=== PATIENT | female | born 1960 | race Caucasian/White ===

== ENCOUNTER 2025-06-05 09:46 | Outpatient (OUT) | payer MEDICARE, MEDICAID, SELFPAY ==
--- OUTSIDE RECORDS SUMMARY | 2014-08-29 11:30 | XMS_ITS | Encounter Summary ---
Author Organization [facility] 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 No 11/26/2024 Social Connection and Isolation Panel Answer Date Recorded In a typical week, how many times do you talk on the phone with family, friends, or neighbors? Three times a week 07/27/2022 How often do you get togethe r with friends or relatives? Once a week 07/27/2022 How often do you attend [facility] or episcopalian services? Never 07/27/2022 Do you belong to any clubs o r organizations such as caodaism groups, unions, fraternal or athletic groups, or school groups? No 07/27/2022 How often do you attend meet ings of the clubs or organizations you belong to? Never 07/27/2022 Are you , , di vorced, , never , or living with a partner? 07/27/2022 AUDIT-C Answer Date Recorded Q1: How often do you have a drink containing alcohol? Never 12/26/2024 Q2: How many drinks containi ng alcohol do you have on a typical day when you are drinking? Patient does not drink Q3: How often do you have si x or more drinks on one occasion? Never 12/26/2024 Overall Financial Resource Strain (CARDIA) Answe r Date Recorded How hard is it for you to pa y for the very basics like food, housing, medical care, and heating? Not very hard 06/25/2024 PHQ-2 Answer Date Recorded PHQ-9 Total Score 0 12/26/2024 [facility] - Occupational Stress Questionnaire Answer Date Recorded Do you feel stress - tense, restless, nervous, or anxious, or unable to sleep at night because your mind is troubled all the time - these days? To some extent 07/27/2022 Exercise Vital Sign Answer Date Recorde d On average, how many days pe r week do you engage in moderate to strenuous exercise (like a brisk walk)? 0 days 12/26/2024 On average, how many minutes do you engage in exercise at this level? 0 min 12/26/2024 Hunger Vital Sign Answer Date Recorded Within the past 12 months, y ou worried that your food would run out before you got the money to buy more. Never true 11/26/19 25 Within the past 12 months, t he food you bought just didn't last and you didn't have money to get more. Never true 11/26/2024 PRAPARE - Transportation Answer Date Re corded In the past 12 months, has l ack of transportation kept you from medical appointments or from getting medications? No 11/03 In the past 12 months, has l ack of transportation kept you from meetings, work, or from getting things needed for daily living? No 11/26/2024 Housing Stability Vital Sign Answer Chiki e Recorded Unable to Pay for Housing in the Last Year Not o n file 05/19/2023 Number of Places Lived in the Last Year Not on f ile 05/19/2023 In the last 12 months, was t here a time when you did not have a steady place to sleep or slept in a longterm (including now)? No 05/19/2023 Housing Stability Vital Sign Answer Chiki e Recorded In the last 12 months, was t here a time when you were not able to pay the mortgage or rent on time? No 11/26/2024 In the past 12 months, how m any times have you moved where you were living? 0 11/26/2024 At any time in the past 12 m onths, were you homeless or living in a longterm (including now)? No 11/26/2024 Food Insecurity Answer Date Recorded Within the past 12 months, y ou worried that your food would run out before you got the money to buy more. 1 11/26/2024 Within the past 12 months, t he food you bought just didn't last and you didn't have money to get more. 1 11/26/2024 Interpersonal Safety Domain Source: IP Abuse Scr eening Answer Date Recorded Physical abuse Denies 10/26/2024 Verbal abuse Denies 10/26/2024 Emotional abuse Denies 10/26/2024 Financial abuse Denies 10/26/2024 Sexual abuse Denies 10/26/2024 Comments No Sex and Gender Information Value Date Recorded Sex Assigned at Female 08/07/2019 6:53 PM EST Legal Sex Female 9:47 PM EST Gender Identity Female 08/07/2019 6:53 PM EST Sexual Orientation Straight 08/07/2019 6: 53 PM EST COVID-19 Exposure Response Date Recorded In the last 10 days, have yo u been in contact with someone who was confirmed or suspected to have Coronavirus/COVID-19? No / Unsure 08/26/2022 12:59 PM EST documented as of this encounter Functional Status * Question Answer Date of Assessment Author Q1: How often do you have a drink containing alcohol? Never 12/26/2024 11:35 AM Jennifer Cabrales M A Q2: How many drinks containing alcohol do you have on a typical day when you are drinking? Patient does not drink 12/26/2024 11:35 AM EDT Jennifer Ascencio MA Q3: How often do you have six or more drinks on one occasion? Never 12/26/2024 11:35 AM EDT Jennifer Ascencio M A * AUDIT-C Score Answer Date of Assessment Author 0 12/26/2024 11:35 AM EDT Jaiden Ascencio MA documented as of this encounter Progress Notes * Cari Will Jaiden - 08/29/2014 11:44 AM EST Images from the original note were not included. [facility] Outpatient Physical Therapy Daily Note Date: 08/29/2014 Patient Name: Marissa Gordon : 1960 (54 y.o.) Referring Practitioner: Dr. Seamus Cray Referral Date : 07/18/14 Diagnosis: Chronic LBP, Hip Pain, L Knee Pain Treatment Diagnosis: LBP/Left hip pain Onset Date: 07/18/14 PT Insurance Information: [facility] -POC exp:09/18/14 Total # of Visits Approved: 18 Per Physician Order Total # of Visits to Date: 5 No Show: 0 Canceled Appointment: 2 Pre-Treatment Pain: 9/10 Assessment Assessment: Patient continues with high pain level (9/10). Pt states had to cancel appt for prosthesis but has appointment next week. continues with L foot numbness especially with sitting. Pt c/o new symptom of pain from medial malloli across to0p of foot to lateral malloli Plan Plan: Continue with current plan Exercises/Modalities/Manual: See DocFlow Sheet Goals Short Term Goals - Time Frame for Short term goals: 9 visits Short term goal 1: Pt to report independence with HEP Short term goal 2: Pt to have 15deg of L Hip IR. Short term goal 3: Pt to report worst pain in L hip 6/10 x3days Custodial Goals - Time Frame for long-term goals : 18 visits long-term goal 1: Pt to report amb tan >20min without increased pain long-term goal 2: Pt to have 4+/5 L Hip Extensor strength long-term goal 3: Pt to complete up/down 1 flight of steps with 1 HR without increased pain. [employer] goal 4: Pt to have L hip ER >45deg to allow pt to kellen shoe/sock without increased pain. 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 Date: 08/29/2014 Cosigned by Yesica Dinh PT at 08/31/2014 3:49 PM EST documented in this encounter Plan of Treatment Upcoming Encounters Date Type Department Care Team (Late st Contact Info) Description 01/08/2026 10:00 AM EDT Office Visit [facility] Urology [address] [facility] [address] [place] [address] Chip Johansen, PAAnand 27 [facility] [address] [address] yearly PVR documented as of this encounter Visit Diagnoses Not on filedocumented in this encounter Additional Health Concerns Infection Onset Date Last Indicated Resolved Time COVID-19 (Rule Out) 06/01/2020 06/01/2020 06/15/20 20 9:28 PM EDT COVID-19 (Rule Out) 07/06/2020 07/06/2020 07/06/20 20 7:52 AM EDT COVID-19 (Rule Out) 08/24/2021 08/24/2021 08/25/20 21 10:44 AM EST COVID-19 (Rule Out) 09/01/2021 09/01/2021 09/01/20 21 3:56 PM EST documented as of this encounter
--- NOTE | 2025-06-05 | XR_ITS ---
The [address] [address] Patient Name: BONI WILLIAM MRN: [id number] date: 1960 Sex: F Assigned Patient Location: [facility] Current Patient Location: [facility] Accession/Order Number: [id number] Exam Date: 06/05/2025 09:52 Report Date: 06/05/2025 10:26 At the request of: ASHLEY TUCKER DO Procedure: XR shoulder RT min 2V RIGHT SHOULDER - 3 views CLINICAL HISTORY: Z98.890 status post arthroscopy of right shoulder COMPARISON: None AP, Y and Grashey views were obtained. There is osteopenia. There is no acute fracture or dislocation. Minor hypertrophy is seen at the acromioclavicular and inferior glenohumeral joints. There is sclerosis and irregularity at the greater tuberosity. There are no significant soft tissue findings. XR/XR shoulder RT min 2V IMPRESSION: OSTEOPENIA AND DEGENERATIVE CHANGES. NO ACUTE BONY FINDINGS. Impression dictated by: Geno London M.D. 06/05/2025 10:26 AM Dictation Location: [place] [address] Electronically authenticated by: [id number] Y Date: 06/05/2025 10:26
--- OUTSIDE RECORDS SUMMARY | 2025-06-05 09:48 | XMS_ITS | Encounter Summary ---
Author Organization [facility] Address [address] [place] [address] Care Team Providers Care Lumber Carrier Operator Name Role Phone Gabriel Reynolds DO Primary Care Provider + Bety Vogle MD Unavailable [phone] Bety Vogel MD Unavailable [phone] Prashant ADAMS MD, Robert Miller Unavailable + Source Comments In the event this information is protected by the Federal Confidentiality of Alcohol and Drug AbusePatient Records regulations: The Federal rules restrict any use of the information to criminally investigate or prosecute any alcohol or drug abuse patient.[facility] Encounter Details Date Type Department Care Team (Late st Contact Info) Description 2023 [place] [address] Provider, [facility] Medicare Coverage of Physical Exams Social History Tobacco Use Types Packs/Day Years Used Date Smoking Tobacco: Former Cigarettes Q uit: 04/27/2015 Alcohol Use Standard Drinks/Week Comments No 0 (1 standard drink = 0.6 oz pur e alcohol) Area Deprivation Index Answer Date Antoine rded National Score (1-100), lower number is lower ri sk 67 01/10/2023 State Score (1-10), lower number is lower risk N ot on file 01/10/2023 Data from: https://www.[facility]/. Last address used for calculation [address] [facility] 01/10/2023 Comments Unknown Sex and Gender Information Value Date Recorded Sex Assigned at Not on file Legal Sex Female 10:07 AM EST Gender Identity Not on file Sexual Orientation Straight 11/29/2022 1: 31 PM EST documented as of this encounter Functional Status * Are you deaf or do you have serious difficulty hearing? Answer Date of Assessment Author No 05/12/2015 5:30 PM Matteo Fish RN * Are you blind or do you have serious difficulty seeing, even when wearing glasses? Answer Date of Assessment Author No 05/12/2015 5:30 PM Matteo Fish RN * Do you have serious difficulty walking or climbing stairs? Answer Date of Assessment Author No 05/12/2015 5:30 PM Matteo Fish RN * Do you have difficulty dressing or bathing? Answer Date of Assessment Author No 05/12/2015 5:30 PM Matteo Fish RN * Because of a physical, mental, or emotional condition, do you have difficulty doing errands alone such as visiting a doctor's office or shopping? Answer Date of Assessment Author No 05/12/2015 5:30 PM Matteo Fish RN documented as of this encounter Mental Status * Because of a physical, mental, or emotional condition, do you have serious difficulty concentrating, remembering, or making decisions? Answer Entry Date Author No 05/12/2015 5:30 PM Matteo Fish RN documented in this encounter Plan of Treatment Not on file documented as of this encounter Visit Diagnoses Not on filedocumented in this encounter Care Teams Lumber Carrier Operator Relationship Specialty Start Date End Date Gabriel Reynolds DO PCP - General Family Medicine 07/30/13 Bety Vogel MD [address] [place] [address] Referring Orthopedics 05/12/15 Bety Vogel MD [address] [place] [address] Home Care Provider Orthopedics 05/12/15 Oskar Cerda II, MD [address] [place] [address] Orthopedics 11/15/22 documented as of this encounter
--- OUTSIDE RECORDS SUMMARY | 2025-06-05 09:48 | XMS_ITS | Clinical Summary ---
Author Organization [facility] Address [address] [place] [address] Care Team Providers Care Radio Interference Supervisor Name Role Phone Gabriel Reynolds DO Primary Care Provider + Bety Vogel MD Unavailable [phone] Bety Vogel MD Unavailable [phone] Prashant ADAMS MD, Robert Miller Unavailable + Allergies No known active allergies Medications DESLORATADINE 5 mg tablet Take 10 mg by mouth once daily. 07/14/2013 Active cyclobenzaprine (FLEXERIL) 5 mg tablet Take 10 mg by mouth daily at bedtime. Active pregabalin (LYRICA) 75 mg capsule Take 75 mg by mouth daily at bedtime. Active acetaminophen (TYLENOL) 500 mg tablet Take 2 tablets by mouth every 8 hours as needed. 100 tablet 3 05/11/2015 Active HYDROCODONE/RENA TAMINOPHEN (NORCO ORAL) Take by mouth as needed. Active Active Problems Problem Noted Date Diagnosed Date Osteoarthrosis, unspecified whether generalized or localized, pelvic region and thigh 05/12/2015 Osteoarthritis of left hip 05/11/2015 Family History Medical History Relation Comments Cancer Father Relation Status Comments Father Mother Alive Social History Tobacco Use Types Packs/Day Years Used Date Smoking Tobacco: Former Cigarettes Q uit: 04/27/2015 Tobacco Cessation:Counseling Given: Not Answered Alcohol Use Standard Drinks/Week Comments No 0 (1 standard drink = 0.6 oz pur e alcohol) Area Deprivation Index Answer Date Antoine rded National Score (1-100), lower number is lower ri sk 79 02/21/2023 State Score (1-10), lower number is lower risk 7 02/21/2023 Data from: https://www.neighborhoodatlas.medicine.[facility].edu/. Last address used for calculation [address] 02/21/2023 Comments Unknown Sex and Gender Information Value Date Recorded Sex Assigned at Not on file Legal Sex Female 10:07 AM EST Gender Identity Not on file Sexual Orientation Straight 11/29/2022 1: 31 PM EST Last Filed Vital Signs Vital Sign Reading Time Taken Comments Blood Pressure 98/58 05/26/2015 4:00 AM EDT Pulse 74 05/26/2015 4:00 AM EDT Temperature 36.8 C (98.2 F) 05/12/2015 1:49 PM EDT Respiratory Rate 18 05/26/2015 4:00 AM EDT Oxygen Saturation 99% 05/12/2015 3:51 PM EDT Inhaled Oxygen Concentration - - Weight 48.5 kg (107 lb) 05/11/2015 4:07 PM EDT Height 162.6 cm (5' 4 ) 05/11/2015 4:07 PM EDT Body Mass Index 18.37 05/11/2015 4:07 PM EDT Plan of Treatment Health Maintenance Due Date Last Done Comments Anxiety Screening 01/12/1976 Depression Screening 01/12/1976 DTaP,Tdap,Td Vaccine (1 - Tdap) 1977 CT Colonography 2003 Cologuard (FIT-DNA) 2003 Colonoscopy 2003 Colorectal Cancer Screening 2003 Fecal Occult Blood 2003 Sigmoidoscopy 2003 Pneumococcal Vaccine: 50+ (1 of 1 - PCV) 01/12/2008 Mammogram Screening 05/07/2019 05/07/2018 Diabetes Screening 07/09/2022 07/09/2019, 0 05/27/2019, 01/16/2019, Additional history exists Bone Density Screening 2023 Lipid Screening 01/17/2024 01/16/2019 Advance Directive Discussion 10/02/2024 Medicare Advantage Annual We llness Visit 10/02/2024 Influenza Vaccine (#1) 2025 07/09/2020 RSV Vaccine (1 - 1-dose 75+ series) 2033 Hepatitis C Screening Completed 01/16/2019 Shingrix Vaccine Completed 07/09/2020, 06/08/2019 Medical Devices Implanted Type Area Outboard System Operator Device Identifier Shelf Expiration Date Model / Serial / Lot Cup Actb 52mm Pinn Sect Srs - [id number] Implanted:Qt y: 1 on 05/11/2015 at [facility] Joint - Hip Left: Bone - Acetabulum [employer] 03/01/2025 [id number] / / [id number] Liner Actb Neut 52mm 32mm - [id number] Implanted:Qt y: 1 on 05/11/2015 at [facility] Joint - Hip Left: Bone - Acetabulum [employer] 12/30/2018 [id number] / / [id number] Stem Fem 13mm Cmntls Clrls Hi - [id number] Implanted:Qt y: 1 on 05/11/2015 at [facility] Joint - Hip Left: Bone - Hip [employer] 10/01/2019 [id number] / / [id number] Head Fem +1mm 12/14 32mm Hip - [id number] Implanted:Qt y: 1 on 05/11/2015 at [facility] Joint - Hip Left: Bone - Hip [employer] 03/01/2020 [id number] / / [id number] Screw Actb 20mm 6.5mm Canc Hip - [id number] Implanted:Qt y: 1 on 05/11/2015 at [facility] Screw Left: Bone - Acetabulum [employer] 03/01/2023 [id number] / / [id number] Procedures Procedure Name Priority Date/Time Associated Diagnosis Comments BASIC METABOLIC PANEL (EU,FV,HL,NELDA,MM,SP) CELENA 05/12/2015 10:25 AM EDT from Last 3 Months or Most Recently Relevant to Health Maintenance Results * (ABNORMAL) BASIC METABOLIC PANEL (EU,FV,HL,LK,NELDA,MM,SP) (05/12/2015 10:25 AM EDT) [facility] Glucose 122(H) 65 - 100 mg/dL 05/12/2015 12:12 PM EDT [facility] BUN 12 8 - 25 mg/dL 05/12/2015 12:12 PM EDT [facility] Creatinine 0.75 0.70 - 1.40 mg/dL 05/12/2015 12:12 PM EDT [facility] Sodium 140 132 - 148 mmol/L 05/12/2015 12:12 PM EDT [facility] Potassium 4.6 3.5 - 5.0 mmol/L 05/12/2015 12:12 PM EDT [facility] Chloride 102 98 - 110 mmol/L 05/12/2015 12:12 PM EDT [facility] CO2 28 23 - 32 mmol/L 05/12/2015 12:12 PM EDT [facility] Anion Gap 10 10 - 20 mmol/L 05/12/2015 12:12 PM EDT [facility] Calcium 9.0 8.5 - 10.5 mg/dL 05/12/2015 12:12 PM EDT [facility] Glom Filtration Rate (AA) >60 >60 05/12/2015 12:12 PM EDT [facility] Glom Filtration Rate (JW) >60 >60 . 05/12/2015 12:12 PM EDT [facility] Blood specimen (specimen) BLOOD SPECIMEN / Unknown 05/12/2015 10:25 AM EDT 05/12/2015 11:33 AM EDT Bety Vogel MD [facility] Final Resul t [facility] [address] [place] [phone] from Last 3 Months or Most Recently Relevant to Health Maintenance Insurance MEDICAID [place] [employer] MEDICARE ADVANTAGE O Care Teams Radio Interference Supervisor Relationship Specialty Start Date End Date Gabriel Reynolds DO PCP - General Family Medicine 07/30/13 Bety Vogel MD [address] [place] [address] Referring Orthopedics 05/12/15 Bety Vogel MD [address] [place] [address] Home Care Provider Orthopedics 05/12/15 Oskar Cerda II, MD [address] [place] [address] Orthopedics 11/15/22
--- OUTSIDE RECORDS SUMMARY | 2025-06-05 09:48 | XMS_ITS | Clinical Summary ---
Author Organization [facility] 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 Role Phone Kyle Zuluaga MD Primary Care Provider Allergies Active Allergy Reactions Criticality Noted Date Comments Codeine Itching,Rash,Other (See Comments) Medium 01/13/2021 Environmental/Season al 05/29/2014 Latex Rash,Other (See Comments) Low 05/29/2014 Other Other (See Comments) Low 11/06/2024 Unknown to patient Medications loratadine (CLARITIN) 10 MG capsule Take 1 capsule by mouth daily Active oxyCODONE-acetami nophen (PERCOCET) 5-325 MG per tablet TAKE 1 TABLET BY MOUTH TWICE DAILY NEEDED FOR PAIN FOR 30 DAYS Active Pseudoephedrine-D M-GG (CAPMIST DM) 60-15-400 MG TABSIndications:C OPD exacerbation (HCC) Take 1 tablet by mouth every 6 hours as needed (cough, congestion) 20 tablet 5 Active albuterol sulfate HFA (VENTOLIN HFA) 108 (90 Base) MCG/ACT inhalerIndication s:COPD exacerbation (HCC) Inhale 2 puffs into the lungs 4 times daily as needed for Wheezing 54 g 1 5 Active GNP PAIN RELIEF EX-STRENGTH 500 MG tablet Take 1 tablet by mouth every 6 hours as needed for Pain 5 Active vitamin D3 (CHOLECALCIFEROL) 25 MCG (1000 UT) TABS tablet Take 1 tablet by mouth daily 90 tablet 3 5 Active Handicap Placard MISC Handicap placard Active .Route November 16, 2023 1:00am [employer]: as directed as directed as directed; Note: Source Status: Taking1 year; Provider: Jacqueline Dominguez 4 Active oxyCODONE (ROXICODONE) 5 MG immediate release tablet TAKE 1 TABLET BY MOUTH EVERY 6 HOURS NEEDED FOR PAIN FOR 5 DAYS 5 Active Active Problems Problem Noted Date Diagnosed Date Wound of left lower extremity 07/04/2024 Urge incontinence 11/27/2023 Urinary frequency 11/27/2023 Frequent UTI 11/27/2023 Urinary urgency 11/27/2023 Ventral hernia without obstruction or gangrene 1 10/19/2021 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 Hypernasal speech 07/28/2021 Anemia 01/19/2021 Malignant neoplasm 01/19/2021 Osteoarthritis 01/19/2021 Pulmonary emphysema 01/19/2021 Contusion of rib on right side 01/19/2021 Right inguinal hernia 08/14/2019 Nontoxic multinodular goiter 07/10/2019 Right lateral abdominal pain 07/09/2019 Soft palate injury 06/26/2019 Nasal septal perforation 06/26/2019 History of leg amputation (H CC) right above knee for bone cancer 09/05/2016 Thyroid nodule Encounters Date Type Department Care Team Description 03/11/2025 11:09 AM EDT - 03/11/2025 11:59 PM EDT Hospital Encounter [facility] [address] [place] [address] Edema, unspecified type; Hair loss Discharge Disposition: Home or Self Care 03/11/2025 10:15 AM EDT Office Visit [facility] [address] [place] [phone] Kyle Zuluaga MD Edema, unspecified type (Primary Dx); Hair loss; Breast cancer screening by mammogram 03/11/2025 Results Follow-Up [facility] [address] [place] [address] Jennifer Ascencio MA from Last 3 Months Immunizations Immunization Administration Dates Next Due COVID-19, MODERNA DEVONTE otto r, Primary or Immunocompromised, (age 12y+), IM, 100 mcg/0.5mL 09/29/2021,03/20/2021,02/10/2021 Influenza Virus Vaccine 07/09/2020 Influenza, FLUARIX, FLULAVAL , FLUZONE (age 6 mo+) and AFLURIA, (age 3 y+), Quadv PF, 0.5mL 07/09/2020 TDaP, ADACEL (age 10y-64y), BOOSTRIX (age 10y+), IM, 0.5mL 06/25/2024 Zoster Recombinant (Shingrix) 07/09/2020, 019 Family History Medical History Relation Name Comments Diabetes Father Stroke Father Breast Cancer Maternal Aunt Breast Cancer Maternal Grandmother Breast Cancer Mother Cancer Mother Breast Breast Cancer Paternal Grandmother Relation Name Status Comments Father Maternal Aunt Alive Maternal Grandfather Maternal Grandmother Mother Alive Paternal Grandfather Paternal Grandmother Social History Tobacco Use Types Packs/Day Years Used Date Smoking Tobacco: Former Cigarettes 4 27 0 10/02/1977 - 10/02/2004 Passive Smoke Exposure: Never Smokeless Tobacco: Never Tobacco Cessation:Counseling Given: Not Answered Alcohol Use Standard Drinks/Week Comments No 0 (1 standard drink = 0.6 oz pur e alcohol) [facility] Utilities Answer Date Recorded In the past 12 months has [employer], [employer], oil, or water [employer] threatened to shut off services in your home? No 11/26/2024 Social Connection and Isolation Panel Answer Date Recorded In a typical week, how many times do you talk on the phone with family, friends, or neighbors? Three times a week 07/27/2022 How often do you get togethe r with friends or relatives? Once a week 07/27/2022 How often do you attend chur ch or episcopalian services? Never 07/27/2022 Do you belong to any clubs o r organizations such as sikhism groups, unions, fraternal or athletic groups, or [...] Date Recorded PHQ-9 Total Score 0 12/26/2024 [facility] of Occupat ional Health - Occupational Stress [...] place to sleep or slept in a fpc (including now)? No 05/19/2023 Housing Stability Vital Sign Answer Chiki e Recorded In the last 12 months, was t here a time when you were not able to pay the mortgage or rent on time? No 11/26/2024 In the past 12 months, how m any times have you moved where you were living? 0 11/26/2024 At any time in the past 12 m [facility], were you homeless or living in a fpc (including now)? No 11/26/2024 Food Insecurity Answer [...] Orientation Straight 08/07/2019 6: 53 PM EST Last Filed Vital Signs Vital Sign Reading Time Taken Comments Blood Pressure 98/62 03/11/2025 10:22 AM EDT Pulse 91 03/11/2025 10:22 AM EDT Temperature 36.5 C (97.7 F) 10/26/2024 5:12 PM EST Respiratory Rate 18 03/11/2025 10:22 AM EDT Oxygen Saturation 97% 03/11/2025 10:22 AM EDT Inhaled Oxygen Concentration - - Weight 54 kg (119 lb) 03/11/2025 10:22 AM EDT Height 157.5 cm (5' 2 ) 03/11/2025 10:22 AM EDT Body Mass Index 21.77 03/11/2025 10:22 AM EDT Plan of Treatment Upcoming Encounters Date Type Department Care Team (Late st Contact Info) Description 01/08/2026 10:00 AM EDT Office Visit [facility] [address] [facility] [address] [place] [address] Chip Johansen, PAJustynaC [address] [place] [address] yearly PVR Health Maintenance Due Date Last Done Comments Pneumococcal 50+ years Vaccine (1 of 2 - PCV) 1977 FIT/FOBT: Average risk 2003 Fecal-DNA (Cologuard): Average risk 2003 Sigmoidoscopy/CT colonography 2003 DEXA (modify frequency per FRAX score) 2013 Respiratory Syncytial Virus (RSV) or age 60 yrs+ (1 - Risk 60-74 years 1-dose series) 2018 Lipids 01/17/2024 01/16/2019 COVID-19 Vaccine ( season) 2024 09/29/2021, 03/20/2021, 02/10/2021 Breast cancer screen 02/13/2025 02/14/2024, 08/10/2022, 04/07/2020, Additional history exists Flu vaccine (#1) 05/02/2025 07/09/2020, 07/09/2020 Depression Screen 12/26/2025 12/26/2024, 12/26/2024 Colonoscopy 07/06/2030 07/06/2020, 01/26/2010 Colorectal Cancer Screen 07/06/2030 DTaP/Tdap/Td vaccine (2 - Td or Tdap) 06/25/2034 06/25/2024 Cervical cancer screen Discontinued Pap smear Discontinued 09/05/2016 Hepatitis C screen Completed 01/16/2019 Shingles vaccine Completed 07/09/2020, 06/08/2019 Annual Wellness Visit (Medicare Advantage) Completed 12/26/2024, 12/26/2023, 10/18/2022, Additional history exists HPV (without or with Pap) Discontinued Hepatitis A vaccine Aged Out No longe r eligible based on patient's age to complete this topic Hepatitis B vaccine Aged Out No longe r eligible based on patient's age to complete this topic Hib vaccine Aged Out No longer eligi ble based on patient's age to complete this topic Meningococcal (ACWY) vaccine Aged Out No longer eligible based on patient's age to complete this topic Meningococcal B vaccine Aged Out No l onger eligible based on patient's age to complete this topic Polio vaccine Aged Out No longer elig ible based on patient's age to complete this topic Medical Devices Implanted Type Area Certified Medical Coding Specialist Device Identifier Shelf Expiration Date Model / Serial / Lot Hip Hip Left: Hip Mesh Surg Saumya Groin 3dmax Lg Rt 4x6in Implanted:Qty : 1 on 08/14/2019 by Handy Kumar MD at [facility] Mesh Right: Inguinal [employer]PMM 02/27/2024 [id number] / / [id number] Screw/Plate/N ail/Niraj Screw/Pl ate/Nail /Niraj N/A: Back Procedures Procedure Name Priority Date/Time Associated Diagnosis Comments TSH REFLEX TO FT4 Routine 03/11/2025 11: 19 AM EDT Hair loss Edema, unspecified type CBC WITH AUTO DIFFERENTIAL Routine 03/11/2025 11:19 AM EDT Edema, unspecified type BASIC METABOLIC PANEL Routine 03/11/2025 11:19 AM EDT Edema, unspecified type HEPATIC FUNCTION PANEL Routine 03/11/2025 11:19 AM EDT Edema, unspecified type KETTY SONIDO DIGITAL SCREEN BILATERAL Routine 02/14/2024 12:57 PM EDT Breast cancer screening by mammogram HEPATITIS C ANTIBODY Routine 01/16/2019 10:31 AM EDT Encounter for hepatitis C screening test for low risk patient LIPID PANEL Routine 01/16/2019 10:31 AM EDT Physical exam, annual Screening for hyperlipidemia [facility] CYTOLOGY Routine 09/05/2016 3:28 PM EST [facility] COLONOSCOPY Routine 01/26/2010 from Last 3 Months or Most Recently Relevant to Health Maintenance Results * TSH reflex to FT4 (03/11/2025 11:19 AM EDT) TSH 1.35 0.27 - 4.20 uIU/mL 03/11/2025 11:19 AM EDT [facility] Blood BLOOD SPECIMEN / Unknown 03/11/2025 11:19 AM EDT 03/11/2025 11:20 AM EDT us Kyle Zuluaga MD CHEMISTRY ORDERABLES Final Re sult [facility] [address] [place] [address], [facility] [phone] * (ABNORMAL) CBC with Auto Differential (03/11/2025 11:19 AM EDT) WBC 5.7 3.5 - 11.0 k/uL 03/11/2025 11:19 AM EDT [facility] RBC 4.30 4.00 - 5.20 m/uL 03/11/2025 11:19 AM EDT [facility] Hemoglobin 12.5 12.0 - 16.0 g/dL 03/11/2025 11:19 AM EDT [facility] Hematocrit 37.4 36.0 - 46.0 % 03/11/2025 11:19 AM EDT [facility] MCV 87.0 80.0 - 100.0 fL 03/11/2025 11:19 AM EDT [facility] MCH 29.1 26.0 - 34.0 pg 03/11/2025 11:19 AM EDT [facility] MCHC 33.4 31.0 - 37.0 g/dL 03/11/2025 11:19 AM EDT [facility] RDW 14.0 12.1 - 15.2 % 03/11/2025 11:19 AM EDT [facility] Platelets 345 140 - 450 k/uL 03/11/2025 11:19 AM EDT [facility] MPV 10.1 6.0 - 12.0 fL 03/11/2025 11:19 AM EDT [facility] Neutrophils % 57 47 - 75 % 03/11/2025 11:19 AM EDT [facility] Lymphocytes % 30 15 - 40 % 03/11/2025 11:19 AM EDT [facility] Monocytes % 10(H) 4 - 8 % 03/11/2025 11:19 AM EDT [facility] Eosinophils % 2 0 - 5 % 03/11/2025 11:19 AM EDT [facility] Basophils % 1 0 - 2 % 03/11/2025 11:19 AM EDT [facility] Immature Granulocytes % 0 0 - 5 % 03/11/2025 11:19 AM EDT [facility] Neutrophils Absolute 3.23 2.5 - 7.0 k/uL 03/11/2025 11:19 AM EDT [facility] Lymphocytes Absolute 1.72 1.00 - 4.80 k/uL 03/11/2025 11:19 AM EDT [facility] Monocytes Absolute 0.58 0.00 - 1.00 k/uL 03/11/2025 11:19 AM EDT [facility] Eosinophils Absolute 0.11 0.00 - 0.40 k/uL 03/11/2025 11:19 AM EDT [facility] Basophils Absolute 0.04 0.00 - 0.20 k/uL 03/11/2025 11:19 AM EDT [facility] Immature Granulocytes Absolute 0.01 0.00 - 0.30 k/uL 03/11/2025 11:19 AM EDT [facility] Blood BLOOD SPECIMEN / Unknown 03/11/2025 11:19 AM EDT 03/11/2025 11:20 AM EDT us Kyle Zuluaga MD HEMATOLOGY ORDERABLES Final R esult [facility] [address] [place] [address], [facility] [phone] * (ABNORMAL) Hepatic Function Panel (03/11/2025 11:19 AM EDT) Albumin 4.2 3.5 - 5.2 g/dL 03/11/2025 11:19 AM EDT [facility] Alkaline Phosphatase 98 35 - 104 U/L 03/11/2025 11:19 AM EDT [facility] ALT 10 5 - 33 U/L 03/11/2025 11:19 AM EDT [facility] AST 18 <32 U/L 03/11/2025 11:19 AM EDT [facility] Total Bilirubin 0.2(L) 0.3 - 1.2 mg/dL 03/11/2025 11:19 AM EDT [facility] Bilirubin, Direct <0.1 <0.3 mg/dL 03/11/2025 11:19 AM EDT [facility] Bilirubin, Indirect Can not be calculated 0.0 - 1.0 mg/dL 03/11/2025 11:19 AM EDT [facility] Total Protein 6.7 6.4 - 8.3 g/dL 03/11/2025 11:19 AM EDT [facility] Globulin 2.5 1.5 - 3.8 g/dL 03/11/2025 11:19 AM EDT [facility] Albumin/Globuli n Ratio 1.7 1.0 - 2.5 03/11/2025 11:19 AM EDT [facility] Blood BLOOD SPECIMEN / Unknown 03/11/2025 11:19 AM EDT 03/11/2025 11:20 AM EDT us Kyle Zuluaga MD CHEMISTRY ORDERABLES Final Re sult [facility] [address] [place] [address], [facility] [phone] * (ABNORMAL) Basic Metabolic Panel (03/11/2025 11:19 AM EDT) Sodium 140 135 - 144 mmol/L 03/11/2025 11:19 AM EDT [facility] Potassium 4.3 3.7 - 5.3 mmol/L 03/11/2025 11:19 AM EDT [facility] Chloride 102 98 - 107 mmol/L 03/11/2025 11:19 AM EDT [facility] CO2 29 20 - 31 mmol/L 03/11/2025 11:19 AM EDT [facility] Anion Gap 9 9 - 17 mmol/L 03/11/2025 11:19 AM EDT [facility] Glucose 100(H) 70 - 99 mg/dL 03/11/2025 11:19 AM EDT [facility] BUN 15 8 - 23 mg/dL 03/11/2025 11:19 AM EDT [facility] Creatinine 0.7 0.5 - 0.9 mg/dL 03/11/2025 11:19 AM EDT [facility] Est, Glom Filt Rate >90 >60 mL/min/1.7 3m2 03/11/2025 11:19 AM EDT [facility] Comment: These results are not intended for use in patients <18 years of age. eGFR results are calculated without a race factor using the 2020 CKD-EPI equation. Careful clinical correlation is recommended, particularly when comparing to results calculated using previous equations. The CKD-EPI equation is less accurate in patients with extremes of muscle mass, extra-renal metabolism of creatine, excessive creatine ingestion, or following therapy that affects renal tubular secretion. Calcium 9.6 8.6 - 10.4 mg/dL 03/11/2025 11:19 AM EDT [facility] Blood BLOOD SPECIMEN / Unknown 03/11/2025 11:19 AM EDT 03/11/2025 11:20 AM EDT us Kyle Zuluaga MD CHEMISTRY ORDERABLES Final Re sult [facility] [address] [place] [address], [facility] [phone] * KETTY SONIDO DIGITAL SCREEN BILATERAL (02/14/2024 12:57 PM EDT) Anatomical Region Laterality Modality Breast Bilateral Mammography 02/14/2024 12:5 7 PM EDT Impressions 02/20/2024 12:11 PM EDT OVERALL ASSESSMENT: BI-RADS: 1 Negative, no evidence of malignancy. A letter of notification will be mailed to the patient. Narrative 02/20/2024 12:11 PM EDT HISTORY: Screening. Family history of breast carcinoma. Prior benign left breast biopsy. TECHNIQUE: Bilateral digital screening mammogram with CAD. Digital breast tomosynthesis imaging. FINDINGS: Two views of each breast show scattered areas of fibroglandular density. BREAST DENSITY CODE: S Scattered No change from prior studies, the most recent of 08/10/2022. Suspicious calcifications: None. Suspicious mass: None. (If skin markers were applied, circles represent skin lesions and linear markers represent scars.) Kyle Zuluaga MD IMG MAMMOGRAPHY ORDERABLES Fi nal Result * Hepatitis C Antibody (01/16/2019 10:31 AM EDT) Hepatitis C Ab NONREACTIVE NONREACTIVE 01/17/20 10:31 AM EDT [facility] Comment: The hepatitis C procedure used in our laboratory is a Chemiluminescent test specific for three recombinant HCV antigens. A negative anti-HCV result indicates that the antibodies to hepatitis C virus are not present at this time. Individuals with reactive anti-HCV should be considered infected and infectious until proven otherwise. Confirmation of all equivocal or reactive results is recommended by ordering HCV RNA by PCR. BLOOD SPECIMEN / Unknown 01/16/2019 10:31 AM EDT 01/16/2019 10:32 AM EDT Fernando Monte [facility] IMMUNOLOGY ORDERABLES [facility] al Result [facility] [address] [place] [address], [facility] [phone] [facility] [place], [place] [id number] [place] [address] * (ABNORMAL) Lipid Panel (01/16/2019 10:31 AM EDT) Cholesterol 266(H) <200 mg/dL 01/16/2019 10:31 AM EDT [facility] Comment: Cholesterol Guidelines: <200 Desirable 200-240 Borderline >240 Undesirable HDL 76 >40 mg/dL 01/16/2019 10:31 AM EDT [facility] Comment: HDL Guidelines: <40 Undesirable 40-59 Borderline >59 Desirable LDL Cholesterol 174(H) 0 - 130 mg/dL 01/16/2019 10:31 AM EDT [facility] Comment: LDL Guidelines: <100 Desirable 100-129 Near to/above Desirable 130-159 Borderline >159 Undesirable Direct (measured) LDL and calculated LDL are not interchangeable tests. Chol/HDL Ratio 3.5 <5 01/16/2019 10:31 AM EDT [facility] Comment: Triglycerides 80 <150 mg/dL 01/16/2019 10:31 AM EDT [facility] Comment: Triglyceride Guidelines: <150 Desirable 150-199 Borderline 200-499 High >499 Very high Based on AHA Guidelines for fasting triglyceride, July 2012. VLDL NOT REPORTED 1 - 30 mg/dL 01/16/2019 10:31 AM EDT [facility] BLOOD SPECIMEN / Unknown 01/16/2019 10:31 AM EDT 01/16/2019 10:32 AM EDT us Fernando Monte DNP CHEMISTRY ORDERABLES Eleanor inman Result [facility] [address] [place] [address], [facility] [phone] * FICTION WRITER Cytology (09/05/2016 3:28 PM EST) Cytology Report (NOTE) [id number] [facility] ANATOMIC PATHOLOGY [address] [place] [address]. [place], [place] [address] GYNECOLOGIC CYTOLOGY REPORT Patient Name: MARISSA GORDON MR#: [id number] Specimen #[id number] Source: 1: Vaginal material, (ThinPrep vial, Imaging-assisted review) Clinical History Hysterectomy: 1987 Z12.72 Vaginal pap post hysterectomy, non malignant condition High Risk HPV DNA testing is requested if the diagnosis is ASC-US INTERPRETATION Vaginal material, (ThinPrep vial, Imaging-assisted review): Specimen Adequacy: Satisfactory for evaluation. Descriptive Diagnosis: Negative for intraepithelial lesion or malignancy. Facility Practice Specialist: MAINE Somers(ASCP) Electronically Signed Out sz/09/23/2016 09/23/2016 12:00 AM EST [facility] 09/05/2016 3:28 PM EST 09/09/2016 3:28 PM EST Elena Martinez MD PATHOLOGY/CYTOLOGY ORDERABLES Final Result [facility] [address] [place] [address], [facility] [phone] * HM COLONOSCOPY (01/26/2010) us Historical Provider HEALTH MAINTENANCE Final Result from Last 3 Months or Most Recently Relevant to Health Maintenance Insurance [place]ICAID [place] BCBS MEDICARE on file [place] Advance Directives * Full Code (Latest Code Status on File) Date Activated Date Inactivated Comments 07/06/2020 10:53 AM 07/06/2020 1:44 PM * Full Code Date Activated Date Inactivated Comments 07/06/2020 8:11 AM 07/06/2020 10:53 AM * Full Code Date Activated Date Inactivated Comments 08/14/2019 3:41 PM 08/14/2019 6:35 PM * Full Code Date Activated Date Inactivated Comments 08/14/2019 10:21 AM 08/14/2019 2:55 PM Healthcare Agents on File Name Relationship Healthcare Agent [facility] Communication Carlos Gordon Child Primary Decision Maker Care Teams Volleyball Coach Relationship Specialty Start Date End Date Kyle Zuluaga MD PCP - General Internal Medicine 03/31/20
--- OUTSIDE RECORDS SUMMARY | 2025-06-05 09:49 | XMS_ITS | Clinical Summary ---
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 07/28/2021 Pulmonary emphysema 01/19/2021 Anemia 01/19/2021 Malignant neoplasm 01/19/2021 Contusion of rib on right side 01/19/2021 Osteoarthritis 01/19/2021 Right lateral abdominal pain 07/06/2020 Right inguinal hernia 08/14/2019 Thyroid nodule 07/10/2019 Soft palate injury 06/26/2019 Nasal septal perforation 06/26/2019 History of leg amputation 09/05/2016 Immunizations Immunization Administration Dates Next Due Influenza, injectable, quadrivalent, preservativ e free 07/09/2020 Zoster, Recombinant 07/09/2020,06/08/2019 Family History Medical History Relation Name Comments Diabetes Father Stroke Father Cancer Mother Breast Relation Name Status Comments Father Maternal Grandfather Maternal Grandmother Mother Alive Paternal Grandfather Paternal Grandmother Social History Tobacco Use Types Packs/Day Years Used Date Smoking Tobacco: Former Cigarettes 4 22 0 10/02/1977 - 10/02/1999 Smokeless Tobacco: Never Alcohol Use Standard Drinks/Week Comments No 0 (1 standard drink = 0.6 oz pur e alcohol) Comments Unknown Sex and Gender Information Value Date Recorded Sex Assigned at Female 07/21/2022 5:33 PM EDT Legal Sex Female 4:07 PM EDT Gender Identity Female 07/21/2022 5:33 PM EDT Sexual Orientation Straight 07/21/2022 5: 33 PM EDT Last Filed Vital Signs Vital Sign Reading Time Taken Comments Blood Pressure 106/60 07/26/2022 10:45 AM EDT Pulse 76 07/26/2022 10:45 AM EDT Temperature 37.1 C (98.7 F) 07/26/2022 8:54 AM EDT Respiratory Rate 16 07/26/2022 10:45 AM EDT Oxygen Saturation 95% 07/26/2022 10:45 AM EDT Inhaled Oxygen Concentration - - Weight 53.1 kg (117 lb) 07/26/2022 8:54 AM EDT Height 167.6 cm (5' 6 ) 07/26/2022 8:54 AM EDT Body Mass Index 18.88 07/26/2022 8:54 AM EDT Plan of Treatment Health Maintenance Due Date Last Done Comments Bone Density Scan 1958 CT Colonography 1958 Colonoscopy 1958 Colorectal Cancer Screening 1958 FIT-DNA 1958 FIT 1958 FOBT 1958 Sigmoidoscopy 1958 Thyroid Nodule Ultrasound 1958 MMR Vaccines (1 of 1 - Standard series) 1959 Depression Screening 1970 Diabetes Screening 01/12/1976 Hepatitis C Screening 01/12/1976 DTaP/Tdap/Td Vaccines (1 - Tdap) 1977 Pneumococcal Vaccine: 50+ Years (1 of 2 - PCV) 1977 RSV Immunization for Adults (1 - Risk 60-74 years 1-dose series) 2018 Mammogram 04/07/2021 04/07/2020 COVID-19 Vaccine (1 - 2023-2 5 season) 2024 Influenza Vaccine (#1) 2025 07/09/2020 Zoster Vaccines Completed 07/09/2020, 06/08/2019 HIB Vaccines Aged Out No longer eligi ble based on patient's age to complete this topic HPV Vaccines Aged Out No longer eligi ble based on patient's age to complete this topic Hepatitis A Vaccines Aged Out No long er eligible based on patient's age to complete this topic Hepatitis B Vaccines Aged Out No long er eligible based on patient's age to complete this topic IPV Vaccines Aged Out No longer eligi ble based on patient's age to complete this topic Meningococcal B Vaccine Aged Out No l onger eligible based on patient's age to complete this topic Meningococcal Vaccine Aged Out No christopher anu eligible based on patient's age to complete this topic RSV Immunization under 20 Months Aged Out No longer eligible b ased on patient's age to complete this topic Rotavirus Vaccines Aged Out No longer eligible based on patient's age to complete this topic Procedures Procedure Name Priority Date/Time Associated Diagnosis Comments IMGHX KETTY DIGITAL SCREEN W OR WO CAD BILATERAL Routine 04/07/2020 11:44 AM EDT from Last 3 Months or Most Recently Relevant to Health Maintenance Results * KETTY DIGITAL SCREEN W OR WO CAD BILATERAL (04/07/2020 11:44 AM EDT) Anatomical Region Laterality Modality Mammography 04/07/2020 11:3 0 AM EDT Impressions 04/09/2020 9:32 AM EDT Benign bilateral mammography. Note: Axillary pain or symptoms need to be evaluated clinically. BI-RADS 2 - Benign, no evidence of malignancy. Normal interval followup is recommended in 12 months. OVERALL ASSESSMENT- BENIGN A letter of notification will be sent to the patient regarding the results. Narrative 04/09/2020 9:32 AM EDT EXAMINATION: KETTY DIGITAL SCREEN W OR WO CAD BILATERAL COMPARISON: 05/07/2018 and 07/04/2014. CLINICAL DATA: Patient does report right axillary pain for one week. TECHNIQUE: 2-D views FINDINGS: Breasts are heterogeneously dense. No masses or microcalcifications or enlarged lymph nodes. No skin thickening or nipple retraction. Procedure Note Provider, Legacy Conversion - 06/26/2022 EXAMINATION: KETTY DIGITAL SCREEN W OR WO CAD BILATERAL COMPARISON: 05/07/2018 and 07/04/2014. CLINICAL DATA: Patient does report right axillary pain for one week. TECHNIQUE: 2-D views FINDINGS: Breasts are heterogeneously dense. No masses ormicrocalcifications or enlarged lymph nodes. No skin thickening or nipple retraction. IMPRESSION: Benign bilateral mammography. Note: Axillary pain or symptoms need to be evaluated clinically. BI-RADS 2 - Benign, no evidence of malignancy. Normal interval followup is recommended in 12 months. OVERALL ASSESSMENT- BENIGN A letter of notification will be sent to the patient regarding theresults. us Legacy Conversion Provider IMG BI PROCEDURES Fin al Result from Last 3 Months or Most Recently Relevant to Health Maintenance Care Teams Dowel Inserting Machine Operator Relationship Specialty Start Date End Date Kyle Zuluaga MD [address] [place] [address] PCP - General 04/01/20
--- OUTSIDE RECORDS SUMMARY | 2025-06-05 09:49 | XMS_ITS | Encounter Summary ---
Author Organization [facility] Address [address] [place] [address] Care Team Providers Care Internet Merchant Name Role Phone Kyle Zuluaga MD Primary Care Provider [phone] Encounter Details Date Type Department Care Team (Late st Contact Info) Description 08/24/2020 Legacy Encounter [facility] Provider, [facility] Conversion Social History Tobacco Use Types Packs/Day Years Used Date Smoking Tobacco: Never Assessed Comments Unknown Sex and Gender Information Value Date Recorded Sex Assigned at Female 07/21/2022 5:33 PM EDT Legal Sex Female 4:07 PM EDT Gender Identity Female 07/21/2022 5:33 PM EDT Sexual Orientation Straight 07/21/2022 5: 33 PM EDT documented as of this encounter Miscellaneous Notes * Telephone Encounter - Legacy Conversion Provider - 08/24/2020 11:22 AM EST Medication pending, rash has come back Health Maintenance Topic Date Due ??? Cervical cancer screen 09/05/2019 ??? DTaP/Tdap/Td vaccine (1 - Tdap) 03/31/2021 (Originally 1977) ??? HIV screen 03/31/2021 (Originally 1973) ??? Annual Wellness Visit (AWV) 07/22/2021 ??? Breast cancer screen 04/07/2022 ??? Lipid screen 01/17/2024 ??? Colon cancer screen colonoscopy 07/06/2030 ??? Flu vaccine Completed ??? Shingles Vaccine Completed ??? Hepatitis C screen Completed ??? Hepatitis A vaccine Aged Out ??? Hepatitis B vaccine Aged Out ??? Hib vaccine Aged Out ??? Meningococcal (ACWY) vaccine Aged Out ??? Pneumococcal 0-64 years Vaccine Aged Out (applicable per patient's age: Cancer Screenings, Depression Screening, Fall Risk Screening, Immunizations) LDL Cholesterol (mg/dL) Date Value 01/16/2019 174 (H) AST (U/L) Date Value 07/09/2019 12 ALT (U/L) Date Value 07/09/2019 7 BUN (mg/dL) Date Value 07/09/2019 15 (goal A1C is < 7) (goal LDL is <100) need 30-50% reduction from baseline BP Readings from Last 3 Encounters: 07/28/20 119/78 07/21/20 133/79 07/13/20 118/70 (goal BP 120/80) All Future Testing planned in [facility]: Lab Frequency Next Occurrence Initiate PAT Protocol Once 07/17/2020 Next Visit Date: Future Appointments Date Time Provider Department Center 07/28/2021 10:00 AM Handy Ayala MD [facility] Patient Active Problem List: 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
--- OUTSIDE RECORDS SUMMARY | 2025-06-05 09:49 | XMS_ITS | Encounter Summary ---
Author Organization [employer] Address [address] [place] [address] Care Team Providers Care Drone Pilot Name Role Phone Kyle Zuluaga MD Primary Care Provider [phone] Encounter Details Date Type Department Care Team (Late st Contact Info) Description 06/18/2020 Legacy Encounter [facility] Provider, Legacy [...] Telephone Encounter - Legacy Conversion Provider - 06/18/2020 9:29 AM EDT Medication pending Health Maintenance Topic Date Due ??? Cervical cancer screen 09/05/2019 ??? Colon cancer screen colonoscopy 01/27/2020 ??? Flu vaccine (1) 06/02/2020 ??? Annual Wellness Visit (AWV) 06/25/2020 ??? DTaP/Tdap/Td vaccine (1 - Tdap) 03/31/2021 (Originally 1977) ??? Shingles Vaccine (2 of 2) 03/31/2021 (Originally 08/03/2019) ??? HIV screen 03/31/2021 (Originally 1973) ??? Breast cancer screen 04/07/2022 ??? Lipid screen 01/17/2024 ??? Hepatitis C screen Completed ??? 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
--- OUTSIDE RECORDS SUMMARY | 2025-06-05 09:49 | XMS_ITS | Encounter Summary ---
Author Organization [facility] Address [address] [place] [address] Care Team Providers Care Inbound Customer Service Agent Name Role Phone Kyle Zuluaga MD Primary Care Provider Encounter Details Date Type Department Care Team (Late st Contact Info) Description 06/30/2020 Legacy Encounter [facility] Provider, Legacy [...] Telephone Encounter - Legacy Conversion Provider - 06/30/2020 9:10 AM EDT rep documented in this encounter Plan of Treatment Not on file documented as of this encounter Visit Diagnoses Not on filedocumented in this encounter Care Teams Inbound Customer Service Agent Relationship Specialty Start Date End Date Kyle Zuluaga MD [address] [place] [address] PCP - General 04/01/20 documented as of this encounter
--- OUTSIDE RECORDS SUMMARY | 2025-06-05 09:49 | XMS_ITS | Clinical Summary ---
Author Organization [facility] Address [address] [place] [address] Care Team Providers Care Centrifuge Separator Tender Name Role Phone Kyle Zuluaga MD Primary Care Provider [phone] Allergies Active Allergy Reactions Criticality Noted Date Comments Codeine Rash Low 08/15/2023 Latex Rash Low 08/15/2023 Medications albuterol HFA 90 mcg/act inhaler Inhale 2 puffs every 4 (four) hours if needed for wheezing Active loratadine (Claritin) 10 MG tablet Take 10 mg by mouth Daily Active omeprazole (PriLOSEC) [address] capsule Take 40 mg by mouth in the morning. Take before meals. Do not crush or chew. . Active famotidine (Pepcid) 20 MG tablet Take 20 mg by mouth in the morning. Active oxyCODONE-aceta minophen (Percocet) 5-325 MG tablet Take 1 tablet by mouth Active cephalexin (Keflex) 500 MG capsule Take 1 capsule by mouth in the morning and 1 capsule in the evening and 1 capsule before bedtime. 08/07/2023 Active Carafate 1 g tablet Take 1 g by mouth. 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 Schatzki's ring 08/15/2023 Encounters Date Type Department Care Team Description 04/29/2025 11:00 AM EDT [facility] [address] [place] [address] 04/29/2025 10:45 AM EDT [facility] [address] [place] [address] Deng Molina DPM Nondisp fx of proximal phalanx of left great toe, init (Primary Dx); Left foot pain; Sprain of metatarsophalangeal joint of left great toe, initial encounter 04/29/2025 Bamboo flowsheet [facility] [address] [place] [address] Deng Molina DPM 04/29/2025 Travel 03/18/2025 1:35 PM EDT Ancillary Procedure [facility] [address] [place] [address] Left foot pain 03/18/2025 1:30 PM EDT [facility] [address] [place] [address] Deng Molina DPM Left foot pain (Primary Dx); Sprain of metatarsophalangeal joint of left great toe, initial encounter; Contusion of left great toe without damage to nail, initial encounter; Nondisp fx of proximal phalanx of left great toe, init 03/18/2025 Bamboo flowsheet [facility] [address] [place] [address] Deng Molina DPM 03/18/2025 Travel from Last 3 Months Immunizations Immunization Administration Dates Next Due Moderna SARS-CoV-2 Vaccination 09/29/2021,2020,02/10/2021 Family History Medical History Relation Name Comments Asthma Father Cancer Father Coronary artery disease Father Diabetes Father Migraines Father Stroke Father Relation Name Status Comments Father Social History Tobacco Use Types Packs/Day Years Used Date Smoking Tobacco: Former Cigarettes Smokeless Tobacco: Never Tobacco Cessation:Counseling Given: Not Answered Alcohol Use Standard Drinks/Week Comments Not Currently 0 (1 standard drink = 0.6 oz pur e alcohol) Comments Unknown Sex and Gender Information Value Date Recorded Sex Assigned at Not on file Legal Sex Female 8:35 PM EDT Gender Identity Not on file Sexual Orientation Not on file Last Filed Vital Signs Vital Sign Reading Time Taken Comments Blood Pressure 102/73 04/29/2025 10:58 AM EDT Pulse 69 04/29/2025 10:58 AM EDT Temperature - - Respiratory Rate - - Oxygen Saturation - - Inhaled Oxygen Concentration - - Weight 56.2 kg (124 lb) 04/29/2025 10:58 AM EDT Height 165.1 cm (5' 5 ) 04/29/2025 10:58 AM EDT Body Mass Index 20.63 04/29/2025 10:58 AM EDT Plan of Treatment Health Maintenance Due Date Last Done Comments CT Colonography 1958 FIT-DNA 1958 FIT 1958 FOBT 1958 Sigmoidoscopy 1958 Pneumococcal Vaccine: 65+ Ye ars (1 of 1 - PCV) 01/12/2008 Mammogram 02/13/2025 02/14/2024, 01/30, 08/10/2022, Additional history exists Influenza Vaccine (#1) 2025 07/09/2020 Colonoscopy 06/30/2033 06/30/2023, 01/26/2010 Colorectal Cancer Screening 06/30/2033 Cervical Cancer Screening Discontinued Pap Smear Discontinued 09/05/2016 HPV/Cotest Discontinued Procedures Procedure Name Priority Date/Time Associated Diagnosis Comments XR FOOT 1-2 VIEWS LEFT Routine 04/29/2025 10:59 AM EDT Left foot pain Sprain of metatarsophalangeal joint of left great toe, initial encounter XR FOOT 1-2 VIEWS LEFT STAT 03/18/2025 1:31 PM EDT Left foot pain from Last 3 Months Results * XR foot 1 or 2 views left (04/29/2025 10:59 AM EDT) Only the most recent of2 resultswithin the time period is included. Anatomical Region Laterality Modality Lower Extremities, Foot Left Radiogra phic Imaging Narrative 04/30/2025 12:24 PM EDT Imaging Result: XRAY LEFT FOOT: AP/OBL- Little change PP base 2-3mm avulsion fx. Good position. No other fx us Deng Molina DPM IMG XR PROCEDURES Final Result from Last 3 Months Insurance [employer] MEDICAID [place] Care Teams Centrifuge Separator Tender Relationship Specialty Start Date End Date Kyle Zuluaga MD [address] [place] [address] PCP - General Internal Medicine 04/29/25
== END 2025-06-05 09:47 | disposition home or self-care (01) ==
LOC: RAD 09:46
PROVIDERS: Visit Provider Physician Assistant
DX: M85.88 Other specified disorders of bone density and structure, other site (principal); Z98.890 Other specified postprocedural states
CPT/HCPCS: 73030